=== PATIENT | male | born 1955 | race Caucasian/White ===

== ENCOUNTER 2019-10-30 17:43 | Outpatient (REF) | payer BC, SELFPAY ==
[2019-10-30 20:36] LABS: Abs Immature Grans 0.02 k/cumm (0.0-0.09); Absolute Basophil Count 0.02 k/cumm (0.0-0.2); Absolute Eosinophil Count 0.27 k/cumm (0.0-0.7); Absolute Lymphocyte Count 2.34 k/cumm (1.2-3.4); Absolute Monocyte Count 0.89 k/cumm (0.11-0.7); Absolute Neutrophil Count 4.24 k/cumm (1.2-6.7); Basophils % 0.3; Eosinophils % 3.5; HCT 44.8 % (40.0-50.0); HGB 15.3 g/dL (13.5-17.5); Immature Grans % 0.3 %; Lymphocytes % 30.1; Mean Corp. HGB Concentration 34.2 g/dL (32.0-36.0); Mean Corpuscular Hemoglobin 30.5 pg (27.0-33.0); Mean Corpuscular Volume 89.2 fL (80-95); Mean Platelet Volume 9.8 fL (8.0-11.0); Monocytes % 11.4; Neutrophils % 54.4; Platelet Count 357 x1000/uL (130-400); RBC 5.02 m/cumm (4.50-6.00); RBC Distribution Width 12.3 % (11.8-14.1); White Blood Cell Count 7.78 k/cumm (4.4-10.8)
[2019-10-30 20:48] LABS: ALT 57 U/L (16-63); AST 29 U/L (15-37); Albumin 4.2 g/dL (3.4-5.0); Alkaline Phosphatase 71 U/L (46-116); Anion Gap 7.1 mmol/L (3-11); BUN 15 mg/dL (7-18); Bilirubin, Total 0.4 mg/dL (0.2-1.0); CO2 26.9 mmol/L (21.0-32.0); CREATININE 0.81 mg/dL (0.70-1.30); Calcium 9.3 mg/dL (8.5-10.1); Chloride 102 mmol/L (98-107); Glucose 104 mg/dL (74-106); Sodium 136 mmol/L (136-145); Total Protein 7.9 g/dL (6.4-8.2)
== END 2019-10-30 18:03 ==
LOC: NCHCN 17:43
PROVIDERS: PCP Family Medicine; Visit Provider Nurse Practitioner Family
DX: Z20.7 Contact with and (suspected) exposure to pediculosis, acariasis and other infestations (principal)
CPT/HCPCS: 80053; 85025

== ENCOUNTER 2019-12-10 18:36 | Outpatient (REF) | payer BC, SELFPAY ==
[2019-12-10 20:01] LABS: Calculated LDL 239 mg/dL (<100); Cholesterol 320 mg/dL (<200); HDL Cholesterol 42 mg/dL (40-60); Triglyceride 195 mg/dL (<150)
== END 2019-12-10 18:56 ==
LOC: NCHCN 18:36
PROVIDERS: PCP Family Medicine; Visit Provider Nurse Practitioner Community Health
DX: E78.5 Hyperlipidemia, unspecified (principal)
CPT/HCPCS: 80061

== ENCOUNTER 2021-09-21 19:50 | Outpatient (REF) | payer BC, SELFPAY ==
[2021-09-21 16:26] LABS: ALT 57 U/L (16-63); AST 27 U/L (15-37); Albumin 3.7 g/dL (3.4-5.0); Alkaline Phosphatase 70 U/L (46-116); Anion Gap 7.9 mmol/L (3-11); BUN 16 mg/dL (7-18); Bilirubin, Total 0.4 mg/dL (0.2-1.0); CO2 27.1 mmol/L (21.0-32.0); CREATININE 0.6 mg/dL (0.70-1.30); Calcium 8.5 mg/dL (8.5-10.1); Calculated LDL 155 mg/dL (<100); Chloride 104 mmol/L (98-107); Cholesterol 219 mg/dL (<200); Glucose 96 mg/dL (74-106); HDL Cholesterol 44 mg/dL (40-60); Potassium 4.2 mmol/L (3.5-5.1); Sodium 139 mmol/L (136-145); Total Protein 7.3 g/dL (6.4-8.2); Triglyceride 103 mg/dL (<150)
== END 2021-09-21 19:51 | disposition home or self-care (01) ==
LOC: NCHCN 19:50
PROVIDERS: PCP Family Medicine; Visit Provider Family Medicine
DX: E78.5 Hyperlipidemia, unspecified (principal); Z00.00 Encounter for general adult medical examination without abnormal findings
CPT/HCPCS: 80053; 80061

== ENCOUNTER 2021-10-02 01:29 | Outpatient (REF) | payer BC, SELFPAY ==
[2021-10-04 10:15] LABS: Campylobacter PCR Negative (Negative); Salmonella PCR Negative (Negative); Shiga Toxin PCR Positive (Negative); Shigella/Enteroinvasive Ecoli Negative (Negative)
== END 2021-10-02 01:30 | disposition home or self-care (01) ==
LOC: NCHCN 01:29
PROVIDERS: PCP Family Medicine; Visit Provider Nurse Practitioner Family
DX: R19.7 Diarrhea, unspecified (principal)
CPT/HCPCS: 87505; 87177

== ENCOUNTER 2021-12-08 16:09 | Outpatient (REF) | payer SELFPAY ==
[2021-12-08 15:37] LABS: ALT 53 U/L (16-63); AST 28 U/L (15-37)
== END 2021-12-08 16:10 | disposition home or self-care (01) ==
LOC: NCHCN 16:09
PROVIDERS: PCP Family Medicine; Visit Provider Family Medicine
DX: Z00.00 Encounter for general adult medical examination without abnormal findings (principal); E78.5 Hyperlipidemia, unspecified
CPT/HCPCS: 84450; 84460

== ENCOUNTER 2022-08-23 10:30 | Outpatient (REF) | payer OTHER, SELFPAY ==
[2022-08-23 15:38] LABS: Calculated LDL 108 mg/dL (<100); Cholesterol 185 mg/dL (<200); Glucose 109 mg/dL (74-106); HDL Cholesterol 48 mg/dL (40-60); Triglyceride 147 mg/dL (<150)
== END 2022-08-23 10:31 | disposition home or self-care (01) ==
LOC: NCHCN 10:30
PROVIDERS: PCP Family Medicine; Visit Provider Family Medicine
DX: Z00.00 Encounter for general adult medical examination without abnormal findings (principal); E78.5 Hyperlipidemia, unspecified; R73.09 Other abnormal glucose
CPT/HCPCS: 80061; 82947

== ENCOUNTER 2022-09-09 00:51 | Outpatient (CLI) | payer OTHER, SELFPAY ==
--- NOTE | 2022-09-09 09:00 | DI.RAD_ITS ---
Exam(s) XR SHOULDER LT COMPLETE 2+V EXAM: XR SHOULDER LT COMPLETE 2+V CLINICAL HISTORY: SHOULDER TENDINITIS, M75.80. TECHNIQUE: 2D digital imaging was performed. Three views. COMPARISON: CR XR SHOULDER RT COMPLETE 2+V from 09/09/2022 FINDINGS: BONES: No acute fracture is present. No bony destructive lesion is seen. JOINTS: No dislocation present. There is mild inferior spurring at the AC joint. Minimal spurring a t the glenoid. No significant joint space narrowing. SOFT TISSUE: Normal. No tendon or joint space calcifications visible. IMPRESSION: Mild degenerative changes. DATA REPOSITORY: RADIATION DOSE DELIVERED:
--- NOTE | 2022-09-09 09:00 | DI.RAD_ITS ---
Exam(s) XR SHOULDER RT COMPLETE 2+V EXAM: XR SHOULDER RT COMPLETE 2+V CLINICAL HISTORY: SHOULDER TENDINITIS, M75.80. TECHNIQUE: 2D digital imaging was performed. Five views. COMPARISON: No exams were available for comparison FINDINGS: BONES: No acute fracture is present. No bony destructive lesion is seen. JOINTS: No dislocation present. Mild spurring at the AC joint. Minimal spurring at the rim of the g lenoid. Joint spaces maintained. SOFT TISSUE: Normal. IMPRESSION: Mild degenerative changes. DATA REPOSITORY: RADIATION DOSE DELIVERED:
== END 2022-09-09 01:11 ==
LOC: DI 00:52
PROVIDERS: PCP Family Medicine; Visit Provider Family Medicine
DX: M75.80 Other shoulder lesions, unspecified shoulder (principal); M19.012 Primary osteoarthritis, left shoulder
CPT/HCPCS: 73030

== ENCOUNTER 2023-04-12 16:34 | Emergency (ER) | payer OTHER, SELFPAY ==
[2023-04-12 16:51] VITALS: BP 152/89; PULSE 69; RESP 74; TEMP 36.2; O2SAT 96
[2023-04-12] MEDS: Fluorescein STRIPS 100/BOX 1 MG OP (17:10)
[2023-04-12] MEDS: Tetracaine 0.5% 4 ML BTL OP (17:10)
--- NOTE | 2023-04-12 17:17 | W.ED.GENAD ---
Discharge Plan Disposition Patient Disposition: Home Condition: Stable Discharge Details Clinical Impression: Foreign body in cornea, right eye, initial encounter Primary Care Provider: Brendan Lawler ED Provider: Mary Beth Pickens Home Meds and New Rx's Prescriptions: No Action simvastatin 10 mg tablet 10 mg PO DAILY Discharge Instructions Instructions: Eye Foreign Body (ED) Additional Instructions: Please call [facility] in am to be seen tomorrow. Tell them you were seen in the ER and they were unable to remove the foreign body. Use the antibiotic drops as directed 3 times daily while awake. Please take Tylenol or Ibuprofen with food every 4-6 hours as needed for pain and swelling. Follow up with primary care provider in 3-5 days. Return to ED sooner if any worsening or concerns. Increase oral fluids. [facility] Discharge Data Discharge Date/Time-TO BE ENTERED AT DEPARTURE: 04/12/23 18:05 Medical Decision Making 67-year-old male presents to the ER with chief complaint of right eye foreign body sensation. This occurred last night. He does have a small black speck noted to the left side of his pupil. No uptake in dye no corneal abrasion noted. EOMs are intact.Patient has a hx of high cholesterol. 1730: Attempted to remove foreign body with q-tip and 18 ga needle, unsuccessful. Will refer patient to [facility] tomorrow for further care. This text was generated using [employer] dictation system, please disregard any oddities of phrase or misspellings. HPI General Mode of arrival: ambulatory. Date/Time Provider Initiated Documentation: 04/12/23 16:55. Limitations to Documentation: no limitations. Information obtained by: patient, RN notes reviewed and old records reviewed. HPI Narrative: 67-year-old male presents to the ER with chief complaint of right eye foreign body sensation. This occurred last night. He does have a small black speck noted to the left side of his pupil. No uptake in dye no corneal abrasion noted. EOMs are intact.Patient has a hx of high cholesterol. Related Data Home Medications Medication Instructions Recorded Confirmed simvastatin 10 mg tablet 10 mg PO DAILY 11/17/22 04/12/23 Allergies Allergy/AdvReac Type Severity Reaction Status Date / Time ibuprofen AdvReac Nausea Unverified 04/12/23 16:53 General Stated Complaint: EyeProblem BOYD: 4 Review of Systems All systems reviewed & are unremarkable except as noted in HPI and below Eyes Eyes: Reports as per HPI, Denies eye discharge and Reports irritation PFSH All Active Problems (Updated 04/12/23 @ 17:42 by Mary Beth Pickens NP) Foreign body in cornea, right eye, initial encounter (Acute) Tendonitis of long head of biceps brachii of right shoulder (Acute) Rotator cuff tear, right (Acute) Arthritis of right glenohumeral joint (Acute) Arthritis of left glenohumeral joint (Acute) Hyperlipidemia (Acute) Social History Smoking/Tobacco Use Status: Never Smoking risk assessment performed?: Yes Alcohol Intake: never Drug use: Never Substance use type: does not use Current gender identity: male Exam Eyes General: appearance normal, both eyes and all related structures Alignment and Position: alignment normal Periorbital: periorbital findings normal Eyelids: eyelids normal Sclera: scleral abnormality right foreign body Pupils: PERRL Eyes/upper lids images: 1. Small Foreign body Course Vital Signs Vital signs: Vital Signs Temperature 36.2 C L 04/12/23 16:51 Pulse 69 04/12/23 16:51 Respiratory Rate 74 H 04/12/23 16:51 Blood Pressure 152/89 H 04/12/23 16:51 Pulse Oximetry 96 04/12/23 16:51 Temperature 36.2 C L 04/12/23 16:51 Temperature Source Skin 04/12/23 16:51 Pulse 69 04/12/23 16:51 Respiratory Rate 74 H 04/12/23 16:51 Respiratory Effort Normal, Non-Labored 04/12/23 16:54 Blood Pressure 152/89 H 04/12/23 16:51 Blood Pressure Position Sitting 04/12/23 16:51 Pulse Oximetry 96 04/12/23 16:51 Oxygen Delivery Method Room Air 04/12/23 16:51 Oxygen Flow Rate 0 04/12/23 16:51 Pain Level 1 04/12/23 16:51
[2023-04-12] MEDS: Erythromycin Ophth Oint 3.5 GM TUBE OD (18:04)
== END 2023-04-12 18:05 | disposition home or self-care (01) ==
PROVIDERS: Emergency Provider Registered Nurse Emergency; PCP Family Medicine
DX: H57.11 Ocular pain, right eye (principal); T15.01XA Foreign body in cornea, right eye, initial encounter; E78.00 Pure hypercholesterolemia, unspecified; Z79.899 Other long term (current) drug therapy
CPT/HCPCS: 99283; 99284

== ENCOUNTER 2023-11-16 16:24 | Outpatient (REF) | payer OTHER, SELFPAY ==
[2023-11-16 20:58] LABS: HCT 44.6 % (40.0-50.0); HGB 14.9 g/dL (13.5-17.5); MCH 30.7 pg (27.0-33.0); MCHC 33.4 % (32.0-36.0); MCV 92 fL (80-95); Platelet Count 302 10^3/uL (130-400); RBC 4.86 10^6/uL (4.36-5.78); RDW 12.3 % (11.8-14.1); RDW-SD 41.7 fL; WBC 9.26 10^3/uL (4.4-10.8)
[2023-11-16 21:11] LABS: ALT 68 U/L (16-63); AST 36 U/L (15-37); Albumin 3.9 g/dL (3.4-5.0); Alkaline Phosphatase 57 U/L (46-116); Anion Gap 9.4 mmol/L (3-11); BUN 17 mg/dL (7-18); Bilirubin, Total 0.39 mg/dL (0.2-1.0); CO2 29.6 mmol/L (21.0-32.0); CREATININE 0.8 mg/dL (0.70-1.30); Calcium 9.3 mg/dL (8.5-10.1); Chloride 103 mmol/L (98-107); Estimated GFR 97.61 (mL/min/1.73m2); Glucose 127 mg/dL (74-106); LDL CHOLESTEROL 128 mg/dL (<100); Potassium 4.1 mmol/L (3.5-5.1); Sodium 142 mmol/L (136-145); Total Protein 7.5 g/dL (6.4-8.2)
== END 2023-11-16 16:25 | disposition home or self-care (01) ==
LOC: NCHCN 16:24
PROVIDERS: PCP Family Medicine; Visit Provider Family Medicine
DX: Z00.00 Encounter for general adult medical examination without abnormal findings (principal); E78.5 Hyperlipidemia, unspecified
CPT/HCPCS: 80053; 83721; 85027

== ENCOUNTER 2024-03-02 09:03 | Day surgery (SDC) | payer OTHER, SELFPAY ==
--- NOTE | 2024-03-01 18:51 | W.ANESPRE ---
General Info Date of Service Date Performed: 03/02/24 Height: 5 ft 7 in Weight: 79.379 kg Body Mass Index (BMI): 27.3 Surgical Procedure: Operation Date: 03/02/24 09:50 Proposed Procedure Side Surgeon kranthi Panchal, DO Meds Allergies and Home Medications Home Medication ?Medication ?Instructions ?Recorded simvastatin 10 mg tablet 10 mg PO DAILY 11/17/22 bisacodyl 5 mg tablet,delayed 5 mg PO ONCE #4 tabs 02/13/24 release (Dulcolax (bisacodyl)) polyethylene glycol 3350 17 17 g PO ONCE #238 grams 02/13/24 gram/dose oral powder Current Visit Medications: Current Medications Generic Name Dose Route Start Last Admin Trade Name Freq PRN Reason Stop Dose Admin Ringer's Solution 1,000 mls @ 80 mls/hr 03/02/24 06:00 IV 03/31/24 23:59 INFUSION TIP IV Miscellaneous Supplies 1 each 03/02/24 06:00 Iv Access IV 03/31/24 23:59 DIRECTED TIP Sodium Chloride 0 ml 03/02/24 06:00 Normal Saline Flush 10 Ml Syr IV 03/31/24 23:59 PRN PRN Sodium Chloride 0 ml 03/02/24 06:00 Normal Saline 10 Ml Vial IJ 03/31/24 23:59 DIRECTED PRN Sterile Water 0 ml 03/02/24 06:00 Water,Injection,Sterile 10 Ml Vial IJ 03/31/24 23:59 DIRECTED PRN PFSH Active Problems Active Problems: Problem Status Onset Code Tendonitis of long head of biceps brachii of right shoulder Acute M75.21 Rotator cuff tear, right Acute M75.101 Arthritis of right glenohumeral joint Acute M19.011 Arthritis of left glenohumeral joint Acute M19.012 Hyperlipidemia Acute E78.5 Surgical History Surgical History (Updated 01/18/24 @ 15:21 by Mya Melgoza RN) History of colonoscopy with polypectomy Tobacco Smoking/Tobacco Use Status: Never Alcohol Alcohol Intake: never Substance Use Substance use: Never Substance use type: does not use Vital Signs and Lab Results Lab Results Blood Type / Crossmatch: No Data to Display Complete Blood Count: No Data to Display Complete Metabolic Panel: No Data to Display Liver Function Panel: No Data to Display Coagulation Panel: No Data to Display Cardiac Panel: No Data to Display Arterial Blood Gas: No Data to Display Venous Blood Gas: No Data to Display Pancreas Panel: No Data to Display Thyroid Panel: No Data to Display Infectious Disease: No Data to Display Blood Cultures: No Data to Display Toxicology Panel: No Data to Display Anesthesia Assessment and Plan Anesthesia History Personal History: No History of Anesthesia Complications Family History: No Family History of Anesthesia Complications Exercise Tolerance Exercise Tolerance: Metabolic Equivalents>4 Cardiac & Pulmonary Exam Cardiac Exam: Normal S1/S2 Heart Sounds Pulmonary Exam: Clear Bilateral Breath Sounds Implantable Cardiac Device Does patient have a Pacemaker or an ICD?: No Airway Exam Known Difficult Airway: No Mallampati Class: 3 Mouth Opening: Normal (> 3cm) Thyromental Distance: Greater than 3 cm Neck Range of Motion: Limited ROM Neck Circumference: Normal Teeth Condition: Normal Dentition ASA Classification ASA Score: ASA 2 Emergency Case?: No NPO Status NPO Status: NPO Clears >2 hours, Solids >8 hours Anesthesia Plan Resuscitation Status: Full Code Anesthesia Technique: General Anesthesia Airway Planned: Natural Airway Monitors Used: Standard Monitors Preoperative Comments:: 68 yo male for colo. sig PMHx: no major.
[2024-03-02 09:10] VITALS: BMI 27.3
[2024-03-02 09:23] VITALS: BP 134/90; PULSE 64; RESP 16; TEMP 36.3; O2SAT 97
[2024-03-02] MEDS: Lactated Ringers 1,000 ML 80 ML IV (09:45)
[2024-03-02 10:49] VITALS: BP 124/79; PULSE 71; RESP 16; TEMP 36.1; O2SAT 97
--- NOTE | 2024-03-02 11:00 | W.ANESPOSTOP ---
Postoperative Evaluation Date, Time and Location Date Performed: 03/02/24 Time Performed: 11:00 Patient Location: Day Surgery Unit Vital Signs Most Recent Imported Vital Signs: Most Recent Vital Signs Temp Pulse Resp BP Pulse Ox 36.1 C L 71 16 124/79 97 03/02/24 10:49 03/02/24 10:49 03/02/24 10:49 03/02/24 10:49 03/02/24 10:49 Pain Score Most Recent Pain Score: Most Recent Pain Score Pain Level 0 03/02/24 10:49 Assessment Mental Status: Awake (Alert & Oriented to Patient Baseline) Airway and Respiratory Function: Patent airway with normal (patient baseline) respiratory exam Cardiovascular Function: Hemodynamically Stable Hydration Status: Adequately Hydrated Nausea & Vomiting: No Nausea or Vomiting Pain: Pt. Denies Any Pain Peripheral Nerve Block: Patient did not receive a nerve block
--- NOTE | 2024-03-02 11:05 | W.COLOREPORT ---
Date of service: 03/02/24 Time of Service: 12:30 Colonoscopy Report Date of procedure: 03/02/24 Pre-op diagnosis general: CRC screen Post-op diagnosis procedure note: other (diverticuka) Surgeon: Nadine Panchal Anesthesia Type: General:No Airway Estimated blood loss (mL): 0 Pathology: none sent Complications: None Disposition: same day Prep: Miralax/Dulcolax Retraction Time: 14 Procedure Description: After informed consent was obtained, explaining risks of the procedure, including but not limits to: bleeding, infections, complications of anesthesia, perforations (which may require antibiotics and /or surgery and stay in the hospital), and abdominal pain/cramping. The patient was taken to the procedure room and placed in a left decubitous position. Monitors were applied and a time out was done. The patients name, date of , procedure, allergies to medications and metal in their body was reviewed. The patient was then sedated. Once sedated and comfortable a rectal exam was done. External exam was normal. Internal exam revealed a normal sphincter tone and no palpable masses. The previously lubricated Olympus scope was then introduced (see RN notes for scope number) and retrofelexed. No internal hemorrhoids were identified. The scope was then advanced to the cecum without difficulty. The TI and appendiceal orifice were identified. The scope was then slowly retracted over14 minutes back into the rectum. Polyps: No. Diverticula: pt had a moderate amount of small mouthed diverticula in the sigmoid colon. There were no signs of active bleeding or infection. The mucosa is pink and healthy w/ a normal vascular pattern. The scope was removed, and the patient was woken up and taken back to Same day surgery in stable condition. The patient tolerated the procedure well and there were no immediate complications. Follow up: The patient should follow up in [10 years, unless they develop changes in bowel habits or other new gastrointestinal complaints. Hillister Bowel Prep Hillister Bowel Prep Right Colon: 3 Left Colon: 3 Transverse Colon: 3 Total Score: 9
--- NOTE | 2024-03-02 11:06 | PDOC.DSDIS_ITS ---
Date of service: 03/02/24 Time of Service: 11:06 Discharge Plan Disposition Patient Disposition: Home Condition: Good Discharge Details Reason For Visit: Colonoscopy Attending Provider: Nadine Panchal Primary Care Provider: Brendan Lawler Home Meds and New Rx's Prescriptions: Discontinued bisacodyl [Dulcolax (bisacodyl)] 5 mg tablet,delayed release (DR/EC) 5 mg PO ONCE Qty: 4 0RF Rx Instructions: Take per colonoscopy instructions provided by ordering providers office No Action polyethylene glycol 3350 17 gram/dose powder 17 g PO ONCE Qty: 238 0RF Rx Instructions: Take per colonoscopy instructions provided by ordering providers office simvastatin 10 mg tablet 10 mg PO DAILY Discharge Instructions Additional Instructions: DSU Colonoscopy Post- Op Instructions Instructions for Everyone who is given Anesthesia: For your safety, please do the following for the next twenty-four (24) hours: *Do Not operate a motor vehicle (car, truck, motorcycle, etc.) *Do Not drink alcoholic beverages or use any recreational drugs for the first 24 hours or while taking pain medications. The medications in your body may have a reaction that can be dangerous. *Do Not make any important decisions or sign any important papers. Findings: Diverticula-make sure you are moving your bowels on a regular basis and not straining. If you find that you are having problems with constipation/straining to move your bowels, then it is recommended you start a fiber supplement daily such as Metamucil. Follow up: Repeat colonoscopy in 10 years time 1. No lifting over 20 pounds or strenuous activity for the first 24 hours after your procedure. After 24 hours there are no restrictions on your activity but you may feel fatigued for a few days. 2. After you arrive home you may have a light meal and return to your normal diet as you can tolerate it without feeling sick to your stomach. 3. You may have a bloated, gaseous feeling in your belly (abdomen) after a colonoscopy. Passing gas and belching will help. Walking or lying down on your left side with your knees flexed may relieve the discomfort. Call the office at [phone] (Office) or [phone] (Hospital) right away if you notice any of the following: a.Vomiting of blood or ?coffee ground stools?. b.Rectal bleeding 1Tbsp, blood clots or continuous bleeding. c.Severe belly (abdominal) pain. d.A hard distended belly (abdomen) and an inability to pass gas. 4. Please don?t expect to have a normal BM (bowel movement) for 2-3 days after your procedure. 5. If there are questions regarding the findings of your procedure, please contact your doctor 6. If you are unable to contact your doctor with a problem, contact the hospital at [phone]. 7. Continue all your regular medications unless directed otherwise. I understand the above instructions and have no questions. Signature of Patient or Adult Escort Name of Responsible Adult Escort Signature of Nurse Date/Time Activity:: See above Diet:: As Tolerated Discharge Orders Discharge Orders: Discharge Order (Routine); Ordered 03/02/24 Ordered By: Nadine Panchal DS: Diagnosis Discharge Diagnosis (1) Diverticula of colon: Status: Acute Asessment and Plan: The patient is seen and examined after their colonoscopy.? The patient has been able to pass gas.? They are not having abdominal pain.? They have been able to tolerate liquids and a snack.? They do not have any nausea or vomiting.? They are not having any chest pain or shortness of breath.??? They are not having any rectal bleeding. Their vital signs have been stable-see nursing notes. We discussed findings during their colonoscopy, and any biopsies that were done/polyps that were removed. The patient will be sent a letter with any biopsy results, and when to repeat the colonoscopy.-see discharge instructions. Patient was given explicit instructions to follow-up regarding colonoscopy-refer to discharge instructions.? We reviewed resumption of medications. Patient verbalized understanding and discharged in stable and satisfactory condition- See nursing notes. (2) Hyperlipidemia: Status: Acute
[2024-03-02 11:20] VITALS: BP 129/86; PULSE 52; RESP 16; TEMP 36.4; O2SAT 100
== END 2024-03-02 11:54 | disposition home or self-care (01) ==
PROVIDERS: PCP Family Medicine; Visit Provider Surgery
PROC: 0DJD8ZZ Inspection of Lower Intestinal Tract, Via Natural or Artificial Opening Endoscopic (ICD-10-PCS; CPT 45378; principal; 2024-03-02 09:45)
DX: K57.30 Diverticulosis of large intestine without perforation or abscess without bleeding (principal); Z12.11 Encounter for screening for malignant neoplasm of colon
CPT/HCPCS: 45378; J2704

== ENCOUNTER 2024-11-19 18:31 | Outpatient (REF) | payer OTHER, SELFPAY ==
[2024-11-19 21:32] LABS: Hemoglobin A1C 5.9 % (<5.7)
[2024-11-19 21:33] LABS: ALT 45 U/L (16-63); AST 20 U/L (15-37); Albumin 3.8 g/dL (3.4-5.0); Alkaline Phosphatase 67 U/L (46-116); Anion Gap 7.2 mmol/L (3-11); BUN 9 mg/dL (7-18); Bilirubin, Total 0.4 mg/dL (0.2-1.0); CO2 28.8 mmol/L (21.0-32.0); CREATININE 0.8 mg/dL (0.70-1.30); Calcium 8.9 mg/dL (8.5-10.1); Chloride 101 mmol/L (98-107); Glucose 99 mg/dL (74-106); LDL CHOLESTEROL 125 mg/dL (<100); Potassium 4.2 mmol/L (3.5-5.1); Sodium 137 mmol/L (136-145); Total Protein 7.7 g/dL (6.4-8.2)
== END 2024-11-19 18:32 | disposition home or self-care (01) ==
LOC: NCHCN 18:31
PROVIDERS: PCP Family Medicine; Visit Provider Family Medicine
DX: E78.5 Hyperlipidemia, unspecified (principal); R73.9 Hyperglycemia, unspecified
CPT/HCPCS: 80053; 83721; 83036